=== PATIENT | female | born 1990 | race Caucasian/White ===

== ENCOUNTER 2018-07-19 08:03 | Inpatient (IN) | payer BC ==
[2018-07-19] MEDS ORDERED: Ondansetron 4 MG/2 ML SDV IV PRN (08:20)
[2018-07-19] MEDS ORDERED: Lidocaine 1% 50 ML MDV INJECT PRN (08:20)
[2018-07-19] MEDS ORDERED: Nalbuphine 10 MG/1 ML Vial IVPUSH PRN ×2 (08:20→21:50)
[2018-07-19] MEDS ORDERED: Terbutaline 1 MG/ML SDV SUBCUT PRN (08:20)
[2018-07-19] MEDS ORDERED: Butorphanol 1 MG/ML SDV IVPUSH PRN (08:20)
[2018-07-19] MEDS ORDERED: Misoprostol 25 MCG (1/4 of 100 MCG) Tab VAG PRN (08:20)
[2018-07-19] MEDS ORDERED: Misoprostol 200 MCG Tab PO PRN (08:20)
[2018-07-19] MEDS ORDERED: Methylergonovine 0.2 MG/1 ML Amp IM PRN (08:20)
[2018-07-19] MEDS ORDERED: Water For Irrigation,Sterile 1,000 ML Container IRR PRN (08:20)
[2018-07-19] MEDS ORDERED: Tranexamic Acid 1,000 MG in Sodium Chloride 0.9% 100 ML IV PRN (08:20)
[2018-07-19] MEDS ORDERED: Carboprost Tromethamine 250 MCG/1 ML Amp IM PRN (08:20)
[2018-07-19] MEDS ORDERED: Sodium Chloride 0.9% 10 ML SDV IV PRN (08:20)
[2018-07-19] MEDS ORDERED: Sodium Chloride 0.9% 10 ML Syringe FLUSH PRN (08:20)
[2018-07-19] MEDS ORDERED: Oxytocin/0.9 % Sodium Chloride 30 UNIT/500 ML BAG IV SCH ×2 (08:30)
[2018-07-19] MEDS ORDERED: Misoprostol 25 MCG (1/4 of 100 MCG) Tab ONE (13:24)
[2018-07-19] MEDS ORDERED: Misoprostol 50 MCG (1/2 of 100 MCG) Tab VAG SCH (13:30)
[2018-07-19] MEDS: Misoprostol 25 MCG (1/4 of 100 MCG) Tab VAG SCH (13:32)
[2018-07-19] MEDS: Lactated Ringers 1,000 ML IV SCH ×2 (15:29→16:35)
--- NOTE | 2018-07-19 16:12 | PCM.PREANE ---
Preanesthetic Assessment - Anesthesia/Transfusion/Family Hx Anesthesia History: No Prior Anesthesia Family History of Anesthesia Reaction: No Transfusion History: No Prior Transfusion(s) - Review of Systems General: No Symptoms Pulmonary: No Symptoms Cardiovascular: No Symptoms Gastrointestinal: No Symptoms Neurological: No Symptoms Other: Reports: None - Physical Assessment Height: 1.68 m Weight: 74.843 kg ASA Class: 2E Mental Status: Alert & Oriented x3 Airway Class: Mallampati = 2 Dentition: Reports: Normal Dentition Thyro-Mental Finger Breadths: 3 Mouth Opening Finger Breadths: 3 ROM/Head Extension: Full Lungs: Clear to Auscultation, Normal Respiratory Effort Cardiovascular: Regular Rate, Regular Rhythm - Lab Values: Laboratory Last Values WBC 10.16 K/uL (4.0-11.0) 07/19/18 08:45 RBC 4.11 M/uL (4.30-5.90) L 07/19/18 08:45 Hgb 11.9 g/dL (12.0-16.0) L 07/19/18 08:45 Hct 36.3 % (36.0-46.0) 07/19/18 08:45 MCV 88.3 fL (80.0-98.0) 07/19/18 08:45 MCH 29.0 pg (27.0-32.0) 07/19/18 08:45 MCHC 32.8 g/dL (31.0-37.0) 07/19/18 08:45 RDW Std Deviation 43.8 fl (28.0-62.0) 07/19/18 08:45 RDW Coeff of Ruddy 14 % (11.0-15.0) 07/19/18 08:45 Plt Count 244 K/uL (150-400) 07/19/18 08:45 MPV 9.40 fL (7.40-12.00) 07/19/18 08:45 Nucleated RBC % 0.0 /100WBC 07/19/18 08:45 Nucleated RBCs # 0 K/uL 07/19/18 08:45 Blood Type A POSITIVE 07/19/18 08:45 Antibody Screen NEGATIVE 07/19/18 08:45 - Allergies Allergies/Adverse Reactions: Allergies Allergy/AdvReac Type Severity Reaction Status Date / Time No Known Allergies Allergy Verified 07/20/16 05:01 - Acknowledgements Anesthesia Type Planned: Epidural (risks and benefits discussed, in depth discussion on back pain and spinal headache.) Pt an Appropriate Candidate for the Planned Anesthesia: Yes Alternatives and Risks of Anesthesia Discussed w Pt/Guardian: Yes Pt/Guardian Understands and Agrees with Anesthesia Plan: Yes PreAnesthesia Questionnaire HEENT History: Reports: None Cardiovascular History: Reports: None Respiratory History: Reports: None Gastrointestinal History: Reports: None 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: Reports: Polycystic Ovaries, Musculoskeletal History: Reports: None Neurological History: Reports: None Psychiatric History: Reports: None Endocrine/Metabolic History: Reports: None Hematologic History: Reports: Anemia - SUBSTANCE USE Smoking Status *Q: Former Smoker Tobacco Use Within Last Twelve Months: No Second Hand Smoke Exposure: No Recreational Drug Use History: No - CURRENT (IN HOUSE) MEDS Current Meds: Current Medications Butorphanol Tartrate (Stadol) 1 mg IVPUSH ASDIRECTED PRN PRN Reason: Pain Last Admin: 07/19/18 15:25 Dose: 1 mg Carboprost Tromethamine (Hemabate Ds) 250 mcg IM ASDIRECTED PRN PRN Reason: Post Hemorrhage Lactated Ringer's (Ringers, Lactated) 1,000 mls @ 150 mls/hr IV ASDIRECTED JOSE F Last Admin: 07/19/18 15:29 Dose: 999 mls/hr Oxytocin/Sodium Chloride (Oxytocin 30 Unit/500 Ml-Ns) 30 unit in 500 mls @ 999 mls/hr IV TITRATE JOSE F Oxytocin/Sodium Chloride (Oxytocin 30 Unit/500 Ml-Ns) 30 unit in 500 mls @ 2 mls/hr IV TITRATE JOSE F; Protocol Tranexamic Acid 1,000 mg/ (Sodium Chloride) 110 mls @ 660 mls/hr IV ONETIME PRN PRN Reason: Bleeding Lidocaine HCl (Xylocaine 1%) 50 ml INJECT ONETIME PRN PRN Reason: Laceration repair Methylergonovine Maleate (Methergine) 0.2 mg IM ASDIRECTED PRN PRN Reason: Post Hemorrhage Misoprostol (Cytotec) 200 mcg PO ONETIME PRN PRN Reason: Post Hemorrhage Misoprostol (Cytotec) 25 mcg VAG Q4H JOSE F Last Admin: 07/19/18 13:32 Dose: 25 mcg Nalbuphine HCl (Nubain) 10 mg IVPUSH ASDIRECTED PRN PRN Reason: Pain (severe 7-10) Ondansetron HCl (Zofran) 4 mg IV Q6H PRN PRN Reason: Nausea/Vomiting Sodium Chloride (Saline Flush) 10 ml FLUSH ASDIRECTED PRN PRN Reason: Keep Vein Open Last Admin: 07/19/18 08:46 Dose: 10 ml Sodium Chloride (Normal Saline) 10 ml IV ASDIRECTED PRN PRN Reason: IV Use Sterile Water (Sterile Water For Irrigation) 1,000 ml IRR ASDIRECTED PRN PRN Reason: delivery Terbutaline Sulfate (Brethine) 0.25 mg SUBCUT ASDIRECTED PRN PRN Reason: Tacysystole Discontinued Medications Misoprostol (Cytotec) 25 mcg VAG Q6H PRN PRN Reason: Cervical Ripening Last Admin: 07/19/18 08:52 Dose: 25 mcg Misoprostol (Cytotec) 25 mcg VAG Q4H JOSE F Misoprostol (Cytotec) Confirm Administered Dose 25 mcg .ROUTE .[facility] Stop: 07/19/18 13:25 Last Admin: 07/19/18 13:32 Dose: Not Given
[2018-07-19] MEDS ORDERED: Ropivacaine HCl/PF 100 ML ONE (16:16)
[2018-07-19] MEDS ORDERED: Lidocaine HCl/EPINEPHrine 5 ML IJ ONE ×2 (16:23→20:29)
[2018-07-19] MEDS ORDERED: Phenylephrine/Normal Saline 100 MCG/ML 10 ML Syringe ONE ×2 (16:59→21:31)
[2018-07-19] MEDS ORDERED: ePHEDrine 50 MG/ML SDV ONE (16:59)
--- NOTE | 2018-07-19 19:00 | PCM.SN ---
- Free Text/Narrative Note: I was reviewing the patient labor progress, and Nurses note, and discovered and error. at 1701 the Nurse recorded that Ephedrine was given. 100 mcg of Neosynephrine was given not Ephedrine. Ephedrine was returned to the anesthesia pyxis.
--- NOTE | 2018-07-19 20:39 | PCM.SN ---
- Free Text/Narrative Note: Called by Dr Roblero to give bolus for labor pressure. Patient having difficulty delivering baby, due to possible fetus position. Patient states that she does not feel pain from the epidural only "lots of pressure." 1.5 % lidocaine with epinephrine 5 ml bolus given. I remained present and immediately available outside the patient room.
[2018-07-19] MEDS ORDERED: diphenhydrAMINE 50 MG/ML SDV IVPUSH PRN ×3 (20:45→22:59)
[2018-07-19] MEDS ORDERED: Citric Acid/Sodium Citrate Solution 30 ML Cup PO ONE (20:47)
[2018-07-19] MEDS ORDERED: Bupivacaine 0.5% 30 ML SDV ONE (21:06)
[2018-07-19] MEDS ORDERED: ceFAZolin 1 GM Vial ONE (21:16)
[2018-07-19] MEDS ORDERED: Morphine PF 10 MG/10 ML SDV ONE (21:43)
[2018-07-19] MEDS ORDERED: Methylergonovine 0.2 MG/1 ML Amp ONE (21:47)
[2018-07-19] MEDS ORDERED: Ondansetron 4 MG/2 ML SDV IVPUSH PRN ×2 (21:50→22:59)
[2018-07-19] MEDS ORDERED: Acetaminophen/oxyCODONE 325-5 MG Tab PO PRN ×3 (21:50→22:59)
[2018-07-19] MEDS ORDERED: fentaNYL 100 MCG/2 ML SDV IVPUSH PRN (21:50)
[2018-07-19] MEDS ORDERED: Naloxone 0.4 MG/ML Syringe IVPUSH PRN (21:50)
[2018-07-19] MEDS ORDERED: Dexamethasone 4 MG/ML 5 ML MDV ONE (22:02)
[2018-07-19] MEDS ORDERED: Ondansetron 4 MG/2 ML SDV ONE (22:02)
[2018-07-19] MEDS ORDERED: Ketorolac 30 MG/ML SDV ONE (22:02)
[2018-07-19] MEDS ORDERED: EPINEPHrine 1 MG/ML SDV ONE (22:32)
[2018-07-19] MEDS ORDERED: Hydrocortisone Sodium Succinate 100 MG/2 ML SDV ONE (22:32)
[2018-07-19] MEDS ORDERED: diphenhydrAMINE 50 MG/ML SDV ONE (22:33)
[2018-07-19] MEDS ORDERED: Naloxone 0.4 MG/ML Syringe ONE (22:40)
[2018-07-19] MEDS ORDERED: Bisacodyl 10 MG Supp RECTAL PRN (22:59)
[2018-07-19] MEDS ORDERED: Lanolin 100% Cream 7 GM Tube TOP PRN (22:59)
[2018-07-19] MEDS ORDERED: Lactated Ringers 1,000 ML IV SCH (23:00)
--- NOTE | 2018-07-19 23:06 | PCM.OPNOTE ---
- General Post-Op/Procedure Note Date of Surgery/Procedure: 07/19/18 Operative Procedure(s): Primary lower segment Findings: Live male delivered at 2140 , 8/9 weight 3500gm , Delivered in direct OP presentation , asynclitic Pre Op Diagnosis: 38yo @ 39w0d suspected Macrosomia. Maternal exhaustion. Direct OP presentation Post-Op Diagnosis: Same Primary Surgeon: Balwinder Ocasio Secondary Surgeon: deandra Anesthesia Provider: Padmaja Sandoval Pathology: none Fluid Replacement, Intraop: 1,400 Output, Urine Amount: 550 EBL in mLs: 900 Complications: None Condition: Good Free Text/Narrative:: Intake & Output 07/19/18 07/19/18 07/20/18 14:59 22:59 06:59 Output Total 550 Balance -550
--- NOTE | 2018-07-19 23:38 | PCM.POSTAN ---
POST ANESTHESIA ASSESSMENT - MENTAL STATUS Mental Status: Alert, Oriented - RESPIRATORY Respiratory Status: Respiratory Rate WNL, Airway Patent, O2 Saturation Stable - CARDIOVASCULAR CV Status: Pulse Rate WNL, Blood Pressure Stable - GASTROINTESTINAL GI Status: No Symptoms - PAIN Pain Score: 0 - POST OP HYDRATION Hydration Status: Adequate & Stable - OBSERVATIONS Free Text/Narrative:: There were no apparent anesthetic complications at this time.
[2018-07-20] MEDS: Ketorolac 30 MG/ML SDV IVPUSH SCH ×5 (05:43→23:10)
--- NOTE | 2018-07-20 06:23 | PCM48HPAN ---
Post Anesthesia Note - EVALUATION WITHIN 48HRS OF ANESTHETIC Vital Signs in Normal Range: Yes Patient Participated in Evaluation: Yes Respiratory Function Stable: Yes Airway Patent: Yes Cardiovascular Function Stable: Yes Hydration Status Stable: Yes Pain Control Satisfactory: Yes Nausea and Vomiting Control Satisfactory: Yes Mental Status Recovered: Yes Resp Rate: 14 - COMMENTS/OBSERVATIONS Free Text/Narrative:: The patient tolerated the procedure well. There were no apparent anesthetic complications at this time.
--- NOTE | 2018-07-20 08:36 | PCM.PNPP ---
- General Info Date of Service: 07/20/18 Functional Status: Reports: Pain Controlled, Tolerating Diet, Ambulating, Urinating - Review of Systems General: Reports: No Symptoms HEENT: Reports: No Symptoms Pulmonary: Reports: No Symptoms Cardiovascular: Reports: No Symptoms Gastrointestinal: Reports: No Symptoms Genitourinary: Reports: No Symptoms Musculoskeletal: Reports: No Symptoms Skin: Reports: No Symptoms Neurological: Reports: No Symptoms Psychiatric: Reports: No Symptoms - General Info Date of Service: 07/20/18 - Patient Data Vital Signs - Most Recent: Last Vital Signs Temp 36.9 C 07/20/18 07:44 Pulse 85 07/20/18 07:44 Resp 17 07/20/18 07:44 BP 106/52 L 07/20/18 07:44 Pulse Ox 96 07/20/18 07:44 Weight - Most Recent: 74.843 kg I&O - Last 24 Hours: Intake & Output 07/19/18 07/20/18 07/20/18 22:59 06:59 14:59 Intake Total 3020 Output Total 550 6000 Balance -550 -2980 Lab Results - Last 24 Hours: Laboratory Results - last 24 hr 07/19/18 07/19/18 07/20/18 Range/Units 08:45 08:45 06:18 WBC 10.16 (4.0-11.0) K/uL RBC 4.11 L (4.30-5.90) M/uL Hgb 11.9 L 10.5 L (12.0-16.0) g/dL Hct 36.3 31.8 L (36.0-46.0) % MCV 88.3 (80.0-98.0) fL MCH 29.0 (27.0-32.0) pg MCHC 32.8 (31.0-37.0) g/dL RDW Std Deviation 43.8 (28.0-62.0) fl RDW Coeff of Ruddy 14 (11.0-15.0) % Plt Count 244 (150-400) K/uL MPV 9.40 (7.40-12.00) fL Nucleated RBC % 0.0 /100WBC Nucleated RBCs # 0 K/uL Blood Type A POSITIVE Antibody Screen NEGATIVE Med Orders - Current: Current Medications Bisacodyl (Dulcolax) 10 mg RECTAL ONETIME PRN PRN Reason: Constipation Butorphanol Tartrate (Stadol) 1 mg IVPUSH ASDIRECTED PRN PRN Reason: Pain Last Admin: 07/19/18 15:25 Dose: 1 mg Carboprost Tromethamine (Hemabate Ds) 250 mcg IM ASDIRECTED PRN PRN Reason: Post Hemorrhage Diphenhydramine HCl (Benadryl) 25 mg IVPUSH Q4H PRN PRN Reason: Itching Stop: 07/20/18 21:50 Diphenhydramine HCl (Benadryl) 25 mg IVPUSH Q6H PRN PRN Reason: Itching or Nausea Docusate Sodium (Colace) 100 mg PO BID [facility] Emollient Ointment (Lansinoh Hpa) 0 gm TOP ASDIRECTED PRN PRN Reason: Sore Nipples Fentanyl (Sublimaze) 50 mcg IVPUSH Q1H PRN PRN Reason: Pain (severe 7-10) Lactated Ringer's (Ringers, Lactated) 1,000 mls @ 150 mls/hr IV ASDIRECTED [facility] Last Infusion: 07/19/18 17:17 Dose: 150 mls/hr Oxytocin/Sodium Chloride (Oxytocin 30 Unit/500 Ml-Ns) 30 unit in 500 mls @ 999 mls/hr IV TITRATE [facility] Oxytocin/Sodium Chloride (Oxytocin 30 Unit/500 Ml-Ns) 30 unit in 500 mls @ 2 mls/hr IV TITRATE [facility]; Protocol Tranexamic Acid 1,000 mg/ (Sodium Chloride) 110 mls @ 660 mls/hr IV ONETIME PRN PRN Reason: Bleeding Lactated Ringer's (Ringers, Lactated) 1,000 mls @ 125 mls/hr IV ASDIRECTED [facility] Ibuprofen (Motrin) 800 mg PO Q8H PRN PRN Reason: mild pain or fever Ketorolac Tromethamine (Toradol) 30 mg IVPUSH Q6H [facility] Stop: 07/20/18 23:01 Last Admin: 07/20/18 05:43 Dose: 30 mg Lidocaine HCl (Xylocaine 1%) 50 ml INJECT ONETIME PRN PRN Reason: Laceration repair Methylergonovine Maleate (Methergine) 0.2 mg IM ASDIRECTED PRN PRN Reason: Post Hemorrhage Misoprostol (Cytotec) 25 mcg VAG Q4H JOSE F Last Admin: 07/19/18 13:32 Dose: 25 mcg Nalbuphine HCl (Nubain) 10 mg IVPUSH ASDIRECTED PRN PRN Reason: Pain (severe 7-10) Nalbuphine HCl (Nubain) 5 mg IVPUSH ASDIRECTED PRN PRN Reason: Itching Naloxone HCl (Narcan) 0.1 mg IVPUSH ONETIME PRN PRN Reason: Respiratory Depression Stop: 07/20/18 21:50 Ondansetron HCl (Zofran) 4 mg IV Q6H PRN PRN Reason: Nausea/Vomiting Ondansetron HCl (Zofran) 4 mg IVPUSH Q6H PRN PRN Reason: Nausea Ondansetron HCl (Zofran) 4 mg IVPUSH Q4H PRN PRN Reason: Nausea/Vomiting Oxycodone/Acetaminophen (Percocet 325-5 Mg) 2 tab PO Q6H PRN PRN Reason: Pain (moderate 4-6) Oxycodone/Acetaminophen (Percocet 325-5 Mg) 1 tab PO Q4H PRN PRN Reason: Pain (moderate 4-6) Oxycodone/Acetaminophen (Percocet 325-5 Mg) 2 tab PO Q4H PRN PRN Reason: Pain (moderate 4-6) Sodium Chloride (Saline Flush) 10 ml FLUSH ASDIRECTED PRN PRN Reason: Keep Vein Open Last Admin: 07/19/18 08:46 Dose: 10 ml Sodium Chloride (Normal Saline) 10 ml IV ASDIRECTED PRN PRN Reason: IV Use Sterile Water (Sterile Water For Irrigation) 1,000 ml IRR ASDIRECTED PRN PRN Reason: delivery Terbutaline Sulfate (Brethine) 0.25 mg SUBCUT ASDIRECTED PRN PRN Reason: Tacysystole Discontinued Medications Bupivacaine HCl (Marcaine 0.5%) Confirm Administered Dose 30 ml .ROUTE .STK-MED ONE Stop: 07/19/18 21:07 Cefazolin Sodium (Ancef) Confirm Administered Dose 2 gm .ROUTE .STK-MED ONE Stop: 07/19/18 21:17 Citric Acid/Sodium Citrate (Bicitra Solution) 30 ml PO ONETIME ONE Stop: 07/19/18 20:48 Last Admin: 07/19/18 21:01 Dose: 30 ml Dexamethasone (Dexamethasone) Confirm Administered Dose 20 mg .ROUTE .STK-MED ONE Stop: 07/19/18 22:03 Diphenhydramine HCl (Benadryl) 25 mg IVPUSH Q4H PRN PRN Reason: Itching Stop: 07/20/18 20:46 Diphenhydramine HCl (Benadryl) Confirm Administered Dose 50 mg .ROUTE .STK-MED ONE Stop: 07/19/18 22:34 Ephedrine Sulfate (Ephedrine Sulfate) Confirm Administered Dose 50 mg .ROUTE .STK-MED ONE Stop: 07/19/18 17:00 Epinephrine HCl (Adrenalin) Confirm Administered Dose 1 mg .ROUTE .STK-MED ONE Stop: 07/19/18 22:33 Hydrocortisone Sodium Succinate (Solu-Cortef) Confirm Administered Dose 100 mg .ROUTE .STK-MED ONE Stop: 07/19/18 22:33 Ropivacaine (Naropin 0.2%) Confirm Administered Dose 100 mls @ as directed .ROUTE .STK-MED ONE Stop: 07/19/18 16:17 Ketorolac Tromethamine (Toradol) Confirm Administered Dose 30 mg .ROUTE .STK- MED ONE Stop: 07/19/18 22:03 Lidocaine/Epinephrine (Lidocaine 1.5%-Epi 1:200,000) Confirm Administered Dose 5 ml IJ .STK-MED ONE Stop: 07/19/18 16:24 Lidocaine/Epinephrine (Lidocaine 1.5%-Epi 1:200,000) Confirm Administered Dose 10 ml IJ .STK-MED ONE Stop: 07/19/18 20:30 Methylergonovine Maleate (Methergine) Confirm Administered Dose 0.2 mg .ROUTE .STK-MED ONE Stop: 07/19/18 21:48 Misoprostol (Cytotec) 200 mcg PO ONETIME PRN PRN Reason: Post Hemorrhage Misoprostol (Cytotec) 25 mcg VAG Q6H PRN PRN Reason: Cervical Ripening Last Admin: 07/19/18 08:52 Dose: 25 mcg Misoprostol (Cytotec) 25 mcg VAG Q4H JOSE F Last Admin: 07/19/18 13:38 Dose: Not Given Misoprostol (Cytotec) Confirm Administered Dose 25 mcg .ROUTE .STK-MED ONE Stop: 07/19/18 13:25 Last Admin: 07/19/18 13:32 Dose: Not Given Morphine Sulfate (Duramorph Pf) Confirm Administered Dose 10 mg .ROUTE .STK-MED ONE Stop: 07/19/18 21:44 Naloxone HCl (Narcan) Confirm Administered Dose 0.4 mg .ROUTE .STK-MED ONE Stop: 07/19/18 22:41 Ondansetron HCl (Zofran) Confirm Administered Dose 4 mg .ROUTE .STK-MED ONE Stop: 07/19/18 22:03 Phenylephrine HCl (Phenylephrine In Ns 100 Mcg/Ml) Confirm Administered Dose 1 mg .ROUTE .STK-MED ONE Stop: 07/19/18 17:00 Phenylephrine HCl (Phenylephrine In Ns 100 Mcg/Ml) Confirm Administered Dose 1 mg .ROUTE .STK-MED ONE Stop: 07/19/18 21:32 - Interaction Disposition, : [place] in Room with Family Infant Interaction: Holding Infant Feeding: Attempted ; Nursed Fair/Poor Support Person: - Recovery Exam Fundal Tone: Firm Fundal Level: At Umbilicus Fundal Placement: Midline Lochia Amount: Small Lochia Color: Rubra/Red Perineum Description: Edematous Bladder Status: Voiding - Exam General: Alert, Oriented HEENT: Pupils Equal Neck: Supple Lungs: Clear to Auscultation, Normal Respiratory Effort Cardiovascular: Regular Rate, Regular Rhythm GI/Abdominal Exam: Normal Bowel Sounds, Soft, Non-Tender, No Organomegaly, No Distention, Pelvis Stable Extremities: Normal Inspection, Normal Range of Motion, Non-Tender. No: No Pedal Edema (trace) Skin: Warm, Dry, Intact Wound/Incisions: Dressing Dry and Intact Neurological: No New Focal Deficit Psy/Mental Status: Alert, Normal Affect, Normal Mood - Problem List & Annotations (1) delivery delivered SNOMED Code(s): 493871959 Code(s): O82 - ENCOUNTER FOR DELIVERY WITHOUT INDICATION Status: Acute Current Visit: Yes (2) Arrested active labor, delivered, current hospitalization SNOMED Code(s): 21664084 Code(s): O62.1 - SECONDARY UTERINE INERTIA Status: Acute Current Visit: Yes - Problem List Review Problem List Initiated/Reviewed/Updated: Yes - My Orders Last 24 Hours: My Active Orders 07/19/18 08:20 Communication Order [RC] ASDIRECTED Communication Order [RC] ASDIRECTED Communication Order [RC] ASDIRECTED Heart Tones [RC] CONTINUOUS Non Stress Test [RC] PER UNIT ROUTINE Notify Provider [RC] PRN Notify Provider [RC] STAT Oxygen Therapy [RC] ASDIRECTED Up ad Ayse [RC] ASDIRECTED Vaginal Exam [RC] PRN Vaginal Exam [RC] PRN Vital Signs [RC] PER UNIT ROUTINE Butorphanol [Stadol] 1 mg IVPUSH ASDIRECTED PRN Carboprost Tromethamine [Hemabate DS] 250 mcg IM ASDIRECTED PRN Lidocaine 1% [Xylocaine 1%] 50 ml INJECT ONETIME PRN Methylergonovine [Methergine] 0.2 mg IM ASDIRECTED PRN Nalbuphine [Nubain] 10 mg IVPUSH ASDIRECTED PRN Ondansetron [Zofran] 4 mg IV Q6H PRN Sodium Chloride 0.9% [Normal Saline] 10 ml IV ASDIRECTED PRN Sodium Chloride 0.9% [Saline Flush] 10 ml FLUSH ASDIRECTED PRN Terbutaline [Brethine] 0.25 mg SUBCUT ASDIRECTED PRN Tranexamic Acid [Cyklokapron] 1,000 mg Sodium Chloride 0.9% [Normal Saline] 100 ml IV ONETIME Water For Irrigation,Sterile [Sterile Water for Irrigation] 1,000 ml IRR ASDIRECTED PRN Peripheral IV Insertion Adult [OM.PC] Routine Resuscitation Status Routine 07/19/18 08:30 Lactated Ringers [Ringers, Lactated] 1,000 ml IV ASDIRECTED Oxytocin/0.9 % Sodium Chloride [Oxytocin 30 Unit/500 ML-NS] 30 unit in 500 ml IV TITRATE Oxytocin/0.9 % Sodium Chloride [Oxytocin 30 Unit/500 ML-NS] 30 unit in 500 ml IV TITRATE Medication Administration Instruction [OM.PC] Q3H - Assessment Assessment:: POD1 after late last night. Tolerating diet, has had catheter out, pain is well controlled. - Plan Plan:: Continue postop care
[2018-07-20] MEDS: Docusate Sodium 100 MG Cap PO SCH (09:39)
--- NOTE | 2018-07-20 15:10 | OR ---
SURGEON: SHAYLEE MEYER DATE OF PROCEDURE: PREOPERATIVE DIAGNOSIS: A 28-year-old G2, P1, at 39 weeks 0 days, undergoing induction of labor for suspected macrosomia. POSTOPERATIVE DIAGNOSES: 1. G2, P1 with induction for suspected macrosomia. 2. Persistent occipito-posterior position with astigmatism and maternal exhaustion. PROCEDURE: Primary lower segment section. INDICATION: Persistent occipito-posterior position with maternal exhaustion and request for section. IV FLUID: 1400. URINE OUTPUT: 550. ESTIMATED BLOOD LOSS: 900. ANESTHESIA: Epidural. NOTES AND FINDING: Live male delivered at 2140. score was 8 and 9. Weight is 3500 g. BRIEF HISTORY: She is a 28-year-old G2, P1, at 39 weeks, who had a history of prolonged second stage labor. At this point, she also had suspected macrosomia, so the patient was brought in for induction of labor. Induction of labor was started with Cytotec. The patient may change, became fully dilated. The patient was encouraged to push. Attempt was made to rotate the baby. She pushed for about an hour. However, the patient was extremely tearful and wanted to go ahead with the . She did not want to push any longer. She believed this baby was bigger than her previous baby and she believes she was not going to be able to have a successful vaginal delivery. The patient was explained the risks, benefits, and alternatives. The patient wanted to really have a section. She signed the consent. The patient was taken to the operating room. DESCRIPTION OF PROCEDURE: The patient was taken to the operating room where epidural anesthesia was topped up. She was prepared and draped in the dorsal left lateral position with a leftward tilt. A Pfannenstiel skin incision was made with a scalpel and carried down to the fascia with the Bovie. The fascia was incised and extended laterally. The fascia was in the midline down to the level of the pubic symphysis. The rectus muscles were down to the level of pubic symphysis. The abdomen was then entered in and then there was exposure of the bladder. An Bravo retractor was placed. A bladder flap was created. A lower uterine incision was made. The fetus was in cephalic position, was brought to the level of the incision, and fundal pressure was used to assist to deliver the baby. Baby was noted to be in occipito-posterior position with some astigmatism. was delivered without difficulty. The cord was clamped and cut. The placenta was delivered via manual massage of the uterine fundus. The uterus was then cleaned. It was sutured in 2 layers; first layer with 0 Vicryl, second layer with 2-0 Monocryl. The Bravo retractor was removed. The incision and bladder base were inspected, was noted to be hemostatic. The peritoneum was closed with 2-0 Monocryl. The rectus muscle was also apposed with 2-0 Vicryl. The fascia was closed with 0 Vicryl. The skin incision was closed with 3-0 Monocryl on a Christofer needle. All instrument and pad count were correct x2. The patient tolerated the procedure well and was sent to the recovery room in stable condition. MONTEZ BAILEY /[id number]
[2018-07-21] MEDS: Docusate Sodium 100 MG Cap PO SCH ×2 (01:05→09:00)
[2018-07-21] MEDS: Misoprostol 25 MCG (1/4 of 100 MCG) Tab VAG SCH (01:06)
[2018-07-21] MEDS ORDERED: Ibuprofen 800 MG Tab PO PRN (05:00)
--- NOTE | 2018-07-21 06:01 | PCM.PNPP ---
- General Info Date of Service: 07/21/18 Functional Status: Reports: Pain Controlled, Tolerating Diet, Ambulating, Urinating - Review of Systems General: Reports: Fatigue. Denies: Fever, Weakness Pulmonary: Denies: Shortness of Breath Cardiovascular: Denies: Chest Pain, Palpitations, Lightheadedness Gastrointestinal: Denies: Abdominal Pain, Nausea, Vomiting Genitourinary: Denies: Flank Pain Skin: Reports: No Symptoms Neurological: Reports: No Symptoms Psychiatric: Reports: No Symptoms - General Info Date of Service: 07/21/18 - Patient Data Vital Signs - Most Recent: Last Vital Signs Temp 36.6 C 07/21/18 04:55 Pulse 83 07/21/18 04:55 Resp 16 07/21/18 04:55 BP 108/59 L 07/21/18 04:55 Pulse Ox 97 07/21/18 04:55 Weight - Most Recent: 74.843 kg Lab Results - Last 24 Hours: Laboratory Results - last 24 hr 07/20/18 Range/Units 06:18 Hgb 10.5 L (12.0-16.0) g/dL Hct 31.8 L (36.0-46.0) % Med Orders - Current: Current Medications Bisacodyl (Dulcolax) 10 mg RECTAL ONETIME PRN PRN Reason: Constipation Butorphanol Tartrate (Stadol) 1 mg IVPUSH ASDIRECTED PRN PRN Reason: Pain Last Admin: 07/19/18 15:25 Dose: 1 mg Carboprost Tromethamine (Hemabate Ds) 250 mcg IM ASDIRECTED PRN PRN Reason: Post Hemorrhage Diphenhydramine HCl (Benadryl) 25 mg IVPUSH Q6H PRN PRN Reason: Itching or Nausea Docusate Sodium (Colace) 100 mg PO BID [facility] Last Admin: 07/21/18 01:05 Dose: Not Given Emollient Ointment (Lansinoh Hpa) 0 gm TOP ASDIRECTED PRN PRN Reason: Sore Nipples Fentanyl (Sublimaze) 50 mcg IVPUSH Q1H PRN PRN Reason: Pain (severe 7-10) Lactated Ringer's (Ringers, Lactated) 1,000 mls @ 150 mls/hr IV ASDIRECTED JOSE F Last Infusion: 05/30/19 17:17 Dose: 150 mls/hr Oxytocin/Sodium Chloride (Oxytocin 30 Unit/500 Ml-Ns) 30 unit in 500 mls @ 999 mls/hr IV TITRATE [facility] Oxytocin/Sodium Chloride (Oxytocin 30 Unit/500 Ml-Ns) 30 unit in 500 mls @ 2 mls/hr IV TITRATE [facility]; Protocol Tranexamic Acid 1,000 mg/ (Sodium Chloride) 110 mls @ 660 mls/hr IV ONETIME PRN PRN Reason: Bleeding Lactated Ringer's (Ringers, Lactated) 1,000 mls @ 125 mls/hr IV ASDIRECTED JOSE F Ibuprofen (Motrin) 800 mg PO Q8H PRN PRN Reason: mild pain or fever Lidocaine HCl (Xylocaine 1%) 50 ml INJECT ONETIME PRN PRN Reason: Laceration repair Methylergonovine Maleate (Methergine) 0.2 mg IM ASDIRECTED PRN PRN Reason: Post Hemorrhage Misoprostol (Cytotec) 25 mcg VAG Q4H [facility] Last Admin: 07/21/18 01:06 Dose: Not Given Nalbuphine HCl (Nubain) 10 mg IVPUSH ASDIRECTED PRN PRN Reason: Pain (severe 7-10) Nalbuphine HCl (Nubain) 5 mg IVPUSH ASDIRECTED PRN PRN Reason: Itching Ondansetron HCl (Zofran) 4 mg IV Q6H PRN PRN Reason: Nausea/Vomiting Ondansetron HCl (Zofran) 4 mg IVPUSH Q6H PRN PRN Reason: Nausea Ondansetron HCl (Zofran) 4 mg IVPUSH Q4H PRN PRN Reason: Nausea/Vomiting Oxycodone/Acetaminophen (Percocet 325-5 Mg) 2 tab PO Q6H PRN PRN Reason: Pain (moderate 4-6) Oxycodone/Acetaminophen (Percocet 325-5 Mg) 1 tab PO Q4H PRN PRN Reason: Pain (moderate 4-6) Oxycodone/Acetaminophen (Percocet 325-5 Mg) 2 tab PO Q4H PRN PRN Reason: Pain (moderate 4-6) Sodium Chloride (Saline Flush) 10 ml FLUSH ASDIRECTED PRN PRN Reason: Keep Vein Open Last Admin: 07/19/18 08:46 Dose: 10 ml Sodium Chloride (Normal Saline) 10 ml IV ASDIRECTED PRN PRN Reason: IV Use Sterile Water (Sterile Water For Irrigation) 1,000 ml IRR ASDIRECTED PRN PRN Reason: delivery Terbutaline Sulfate (Brethine) 0.25 mg SUBCUT ASDIRECTED PRN PRN Reason: Tacysystole Discontinued Medications Bupivacaine HCl (Marcaine 0.5%) Confirm Administered Dose 30 ml .ROUTE .STK-MED ONE Stop: 07/19/18 21:07 Cefazolin Sodium (Ancef) Confirm Administered Dose 2 gm .ROUTE .STK-MED ONE Stop: 07/19/18 21:17 Citric Acid/Sodium Citrate (Bicitra Solution) 30 ml PO ONETIME ONE Stop: 07/19/18 20:48 Last Admin: 07/19/18 21:01 Dose: 30 ml Dexamethasone (Dexamethasone) Confirm Administered Dose 20 mg .ROUTE .STK-MED ONE Stop: 07/19/18 22:03 Diphenhydramine HCl (Benadryl) 25 mg IVPUSH Q4H PRN PRN Reason: Itching Stop: 07/20/18 20:46 Diphenhydramine HCl (Benadryl) 25 mg IVPUSH Q4H PRN PRN Reason: Itching Stop: 07/20/18 21:50 Diphenhydramine HCl (Benadryl) Confirm Administered Dose 50 mg .ROUTE .STK-MED ONE Stop: 07/19/18 22:34 Ephedrine Sulfate (Ephedrine Sulfate) Confirm Administered Dose 50 mg .ROUTE .ST-MED ONE Stop: 07/19/18 17:00 Epinephrine HCl (Adrenalin) Confirm Administered Dose 1 mg .ROUTE .STK-MED ONE Stop: 07/19/18 22:33 Hydrocortisone Sodium Succinate (Solu-Cortef) Confirm Administered Dose 100 mg .ROUTE .STK-MED ONE Stop: 07/19/18 22:33 Ropivacaine (Naropin 0.2%) Confirm Administered Dose 100 mls @ as directed .ROUTE .STK-MED ONE Stop: 07/19/18 16:17 Ketorolac Tromethamine (Toradol) Confirm Administered Dose 30 mg .ROUTE .STK- MED ONE Stop: 07/19/18 22:03 Ketorolac Tromethamine (Toradol) 30 mg IVPUSH Q6H JOSE F Stop: 07/20/18 23:01 Last Admin: 07/20/18 23:10 Dose: 30 mg Lidocaine/Epinephrine (Lidocaine 1.5%-Epi 1:200,000) Confirm Administered Dose 5 ml IJ .STK-MED ONE Stop: 07/19/18 16:24 Lidocaine/Epinephrine (Lidocaine 1.5%-Epi 1:200,000) Confirm Administered Dose 10 ml IJ .STK-MED ONE Stop: 07/19/18 20:30 Methylergonovine Maleate (Methergine) Confirm Administered Dose 0.2 mg .ROUTE .STK-MED ONE Stop: 07/19/18 21:48 Misoprostol (Cytotec) 200 mcg PO ONETIME PRN PRN Reason: Post Hemorrhage Misoprostol (Cytotec) 25 mcg VAG Q6H PRN PRN Reason: Cervical Ripening Last Admin: 07/19/18 08:52 Dose: 25 mcg Misoprostol (Cytotec) 25 mcg VAG Q4H JOSE F Last Admin: 07/19/18 13:38 Dose: Not Given Misoprostol (Cytotec) Confirm Administered Dose 25 mcg .ROUTE .STK-MED ONE Stop: 07/19/18 13:25 Last Admin: 07/19/18 13:32 Dose: Not Given Morphine Sulfate (Duramorph Pf) Confirm Administered Dose 10 mg .ROUTE .STK-MED ONE Stop: 07/19/18 21:44 Naloxone HCl (Narcan) 0.1 mg IVPUSH ONETIME PRN PRN Reason: Respiratory Depression Stop: 07/20/18 21:50 Naloxone HCl (Narcan) Confirm Administered Dose 0.4 mg .ROUTE .STK-MED ONE Stop: 07/19/18 22:41 Ondansetron HCl (Zofran) Confirm Administered Dose 4 mg .ROUTE .STK-MED ONE Stop: 07/19/18 22:03 Phenylephrine HCl (Phenylephrine In Ns 100 Mcg/Ml) Confirm Administered Dose 1 mg .ROUTE .STK-MED ONE Stop: 07/19/18 17:00 Phenylephrine HCl (Phenylephrine In Ns 100 Mcg/Ml) Confirm Administered Dose 1 mg .ROUTE .STK-MED ONE Stop: 07/19/18 21:32 - Interaction Infant Disposition, : in Room with Family Interaction: Holding Infant Infant Feeding: Attempted ; Nursed Fair/Poor Support Person: - Recovery Exam Fundal Tone: Firm Fundal Level: At Umbilicus Fundal Placement: Midline Lochia Amount: Scant Lochia Color: Rubra/Red Perineum Description: Intact, Minimal Bruising/Swelling Bladder Status: Voiding Urinary Elimination: Voided - Exam General: Alert, Oriented Lungs: Normal Respiratory Effort Cardiovascular: Regular Rate, Regular Rhythm GI/Abdominal Exam: Normal Bowel Sounds, Soft Extremities: Pedal Edema (1+). No: Marty's Sign Skin: Warm, Dry, Intact Wound/Incisions: Healing Well, No Drainage. No: Erythema Neurological: No New Focal Deficit Psy/Mental Status: Alert, Normal Affect, Normal Mood - Problem List Review Problem List Initiated/Reviewed/Updated: Yes - My Orders Last 24 Hours: My Active Orders 07/21/18 05:58 Ready for Discharge [RC] PER UNIT ROUTINE - Assessment Assessment:: POD2 after late last night. Tolerating diet, has had catheter out, pain is well controlled. - Plan Plan:: Doing well overall--would like to go home later today. Discharge instructions reviewed. Follow up at [facility] 2 and 6 weeks. Infection and bleeding warnings reviewed.
[2018-07-21 07:49] VITALS: BP 107/64
== END 2018-07-21 11:20 | disposition home or self-care (01) | DRG 540 ==
LOC: MW.OBCHECK 08:03 → MW.OB 08:03 → MW.OBCHECK 08:20 → OBSVTOIN 21:40 → MW.OB 07-20 01:10
PROVIDERS: ADMIT Obstetrics & Gynecology; ATTEND Obstetrics & Gynecology
PROC: 10D00Z1 Extraction of Products of Conception, Low, Open Approach (ICD-10-PCS; principal; 2018-07-20)
PROC: 3E0S3BZ Introduction of Anesthetic Agent into Epidural Space, Percutaneous Approach (ICD-10-PCS; 2018-07-20)
PROC: 00HU33Z Insertion of Infusion Device into Spinal Canal, Percutaneous Approach (ICD-10-PCS; 2018-07-20)
DX: O36.63X0 Maternal care for excessive fetal growth, third trimester, not applicable or unspecified (principal); O75.81 Maternal exhaustion complicating labor and delivery; O62.1 Secondary uterine inertia; Z3A.38 38 weeks gestation of pregnancy; Z37.0 Single live birth
CPT/HCPCS: 01967; 01968; 36415; 51702; 59025; 85014; 85018; 85027; 86850; 86900; 86901; A9270-GY; J0171; J0595; J0690; J1100; J1200; J1720; J1885; J2270; J2370; J2405; J7120